=== PATIENT | female | born 1950 ===

== ENCOUNTER → 2020-01-07 | Outpatient (CLI) | payer OTHER, MEDICARE ==
[~2020-01-07] MED LIST: ACETAMINOPHEN-1 EAC1 PO; ADULT LOW DOSE81 MG; APAP650; BENICAR40 MG; CARVEDILOL25 MG; LASIX 40 MG TAB40 M1; METHOTREXATE 22.5 MG; MULTIVITAMINS
== END ==
LOC: SJCVC 11:33
DX: I11.0 Hypertensive heart disease with heart failure (principal); I43 Cardiomyopathy in diseases classified elsewhere; L40.50 Arthropathic psoriasis, unspecified; E78.5 Hyperlipidemia, unspecified

== ENCOUNTER → 2020-03-15 | Outpatient (CLI) | payer OTHER, MEDICARE | LOC: SJCVCIMAG 12:49 | PROVIDERS: ATTEND Internal Medicine | DX: I35.1 Nonrheumatic aortic (valve) insufficiency (principal); I42.9 Cardiomyopathy, unspecified ==

== ENCOUNTER → 2020-10-05 | Outpatient (CLI) | payer OTHER | LOC: SJCVC 14:10 | PROVIDERS: ATTEND Internal Medicine | DX: I11.0 Hypertensive heart disease with heart failure (principal); I43 Cardiomyopathy in diseases classified elsewhere; L40.50 Arthropathic psoriasis, unspecified; E78.5 Hyperlipidemia, unspecified; I50.9 Heart failure, unspecified; I25.5 Ischemic cardiomyopathy; Z88.0 Allergy status to penicillin; Z88.2 Allergy status to sulfonamides; Z79.82 Long term (current) use of aspirin; Z79.899 Other long term (current) drug therapy; Z87.891 Personal history of nicotine dependence; Z72.89 Other problems related to lifestyle ==